=== PATIENT | male | born 1965 | race Caucasian/White ===

== ENCOUNTER 2021-05-25 10:21 | Observation (INO) ==
[2021-05-25 10:51] LABS: Basophils # (auto) 0.02 K/uL (0-0.2); Basophils % (auto) 0.4 %; Eosinophils # (auto) 0.08 K/uL (0-0.5); Eosinophils % (auto) 1.6 %; Hematocrit (blood only) 41.6 % (42-52); Hemoglobin 14.4 g/dL (14.0-18.0); Lymphocytes # (auto) 1.55 K/uL (1.2-3.4); Lymphocytes % (auto) 31.1 %; Mean Corpuscular Hemoglobin 34.4 pg (25-34); Mean Corpuscular Hgb Conc 34.6 g/dL (32-36); Mean Corpuscular Volume 99.3 fL (80-100); Mean Platelet Volume 9.9 fL (7.4-10.4); Monocytes # (auto) 0.39 K/uL (0.11-0.59); Monocytes % (auto) 7.8 %; Neutrophils # (auto) 2.95 K/uL (1.4-6.5); Neutrophils % (auto) 59.1 %; Platelet Count 169 K/uL (130-400); RDW Coefficient of Variation 12.1 % (11.5-14.5); RDW Standard Deviation 43.6 fL (36.4-46.3); Red Blood Count 4.19 M/uL (4.7-6.1); White Blood Count 4.99 K/uL (4.8-10.8)
--- NOTE | 2021-05-25 10:59 | XRay Report ---
XR chest 1V portable HISTORY: Atypical Chest Pain COMPARISON: Chest 02/05/2021. FINDINGS: The lungs are clear. Cardiac silhouette is normal in size. No pleural effusions. No pneumot horax. Cervical spinal fusion hardware is partially visualized. IMPRESSION: No acute process. ACT 112: Negative or not required by law. Electronically signed by: Morteza Carballo M.D. 05/25/2021 10:58 AM
[2021-05-25 11:01] LABS: Partial Thromboplastin Time 25.5 Seconds (21.0-31.0); Prothrombin Time 10.3 Seconds (9.0-12.0)
[2021-05-25 11:10] LABS: Alanine Aminotransferase 17 U/L (12-78); Albumin Level 3.5 gm/dl (3.4-5.0); Aspartate Aminotransferase 12 U/L (15-37); BUN Creatinine Ratio 16.6 (10-20); Blood Urea Nitrogen 14 mg/dl (7-18); Calcium 8.2 mg/dl (8.5-10.1); Carbon Dioxide 27 mmol/L (21-32); Chloride 111 mmol/L (98-107); Est GFR (African American) 112.4 ml/min; Est GFR (Non-African American) 96.9 ml/min; Glucose 112 mg/dl (70-99); Sodium 141 mmol/L (136-145)
[2021-05-25 11:15] LABS: Albumin Globulin Ratio 1.6 (0.9-2); Alkaline Phosphatase 45 U/L (45-117); Bilirubin,Total 0.6 mg/dl (0.2-1); Globulin 2.2 gm/dl (2.5-4.0); Total Protein 5.7 gm/dl (6.4-8.2); Troponin I < 0.015 ng/ml (0-0.045)
--- NOTE | 2021-05-25 11:43 | Emergency Department Note ---
Impression & Plan Retrosternal chest pain, Acute hypotension ED Provider Note INFORMANT: Patient ED PROVIDER(S): Edgardo Zuluaga MD CHIEF COMPLAINT: Chest pain PLAN: Disposition: Admitted Condition: Good Outpatient prescription management: none Referral: None MEDICAL DECISION MAKING: Patient presented to the emergency department with intermittent chest pain issues that have been escalating. He does note an exertional component at times. He does have relief with nitroglycerin. The patient's blood pressure was low for EMS and he was treated with normal saline. His hypotension resolved. He was pain-free on my evaluation. His ECG did not show any acute findings. The patient's chest x-ray was negative. His laboratory testing was unremarkable. He was sent for CT imaging of the chest to further evaluate the etiology of his chest pain. Extensive coronary calcifications were noted. No acute thromboembolic disease was noted. Given the situation further management in the hospital was deemed appropriate. [facility] Patient was evaluated in the ER. Triage Nursing notes reviewed and agree them. Vital Signs: reviewed and remarkable for no significant abnormalities Differential diagnosis: Cardiac ischemia, aortic dissection, pulmonary embolism, pneumothorax, pneumonia, pericarditis, myocarditis, esophageal rupture, GERD, cholecystitis, pancreatitis, musculoskeletal, as well as other pathologies. Diagnostics interpreted by me: ECG: Twelve-lead ECG revealed normal sinus rhythm at 76 bpm. Septal Q waves present. No ST elevation or depression. No PACs or PVCs. Cardiac Monitoring: Cardiac monitoring ordered by me: The patient was placed on continuous cardiac monitoring and observed. It revealed a normal sinus rhythm at 60 beats per minute without ectopy or evidence of dysrhythmia. Imaging studies: Chest x-ray. Findings: A chest x-ray was performed and revealed no pneumothorax, effusion, infiltrate, pulmonary edema, free air under the diaphragm, or wide mediastinum. Impression: No acute disease. CT PE study shows coronary calcifications. No thromboembolic disease. I refer you to the EMR for further details. HPI: The patient is a 55year old male who presents to the Emergency Room with complaints of retrosternal chest pain. This started months ago and is intermittent. Occasionally at rest and sometimes exertional. Pain is relieved with nitro. The patient also notes the following associated symptoms, dizziness. The patient has been using nitro relieving factors. Current pain is rated as 0/10. Pt ws hypotensive for EMS and responded to a NSS bolus. Pt denies LOC, headache, fevers, chills, diaphoresis, visual changes, neck pain, breathing difficulties, nausea, vomiting, abdominal pain, back pain, melena, hematochezia, urinary symptoms, numbness, weakness, lymphadenopathy, rash, or other complaints. ROS: See above HPI for pertinent positives & negatives. A total of 10 systems reviewed and were otherwise negative. PAST MEDICAL HISTORY:See Below , CAD PAST SURGICAL HISTORY:See Below, FAMILY HISTORY:See Below SOCIAL HISTORY:See Below, incarcerated HOME MEDICATIONS:See Below ALLERGIES:See Below VITALS:See Below PHYSICAL EXAMINATION: GENERAL: Awake, alert, well-appearing, in no distress HENT: Normocephalic, atraumatic. Oropharynx unremarkable. EYES: Normal conjunctiva. Sclera non-icteric. NECK: Inspection normal. Non-tender. Supple. No nuchal rigidity. FROM. No masses. RESPIRATORY: Clear to auscultation. No wheezes. No rales. Normal respiratory effort. CARDIAC: Normal rate. Normal rhythm. No murmurs. No rubs. Extremities warm and well perfused. Pulses equal. No JVD. GI: Soft, non-distended. No tenderness to palpation. No rebound or guarding. No masses. RECTAL: Deferred. MUSCULOSKELETAL: Atraumatic. Chest examination reveals no tenderness. The back is symmetrical on inspection without obvious abnormality. There is no CVA tenderness to palpation. No joint edema. LOWER EXTREMITIES: Calves are equal size bilaterally and non-tender. No edema. No discoloration. NEURO: Normal sensorium. No sensory or motor deficits noted. SKIN: No rash or jaundice noted. Edgardo Zuluaga MD Past Med/Surg History Medical History Alzheimer's disease CAD (coronary artery disease) Social History Smoking Status: Never smoker Preferred Language: Spanish Feels Safe at Home: Yes Allergies Allergies Allergy/AdvReac Type Severity Reaction Status Date / Time Sulfa (Sulfonamide Allergy Unknown Verified 05/25/21 13:08 Antibiotics) Home Meds Home Medications Medication Instructions Recorded Confirmed Tar Shampoo 1 dose TOPICAL MOWEFR 05/25/21 05/25/21 acetaminophen [Tylenol Extra 500 mg PO BID PRN 05/25/21 05/25/21 Strength] atorvastatin 20 mg PO HS 05/25/21 05/25/21 capsaicin 1 applic TOPICAL QID PRN 05/25/21 05/25/21 celecoxib [Celebrex] 200 mg PO DAILY 05/25/21 05/25/21 ciclesonide [Alvesco] 1 puff INHALATION BID 05/25/21 05/25/21 docusate sodium 200 mg PO DAILY 05/25/21 05/25/21 docusate sodium 300 mg PO HS 05/25/21 05/25/21 donepezil 10 mg PO DAILY 05/25/21 05/25/21 hydrocortisone 1 ea TOPICAL DAILY 05/25/21 05/25/21 isosorbide mononitrate 30 mg PO DAILY 05/25/21 05/25/21 lactulose 30 g PO BID 05/25/21 05/25/21 levalbuterol tartrate [Xopenex HFA] 2 inh INHALATION Q6H PRN 05/25/21 05/25/21 lidocaine 1 applic TOPICAL QID PRN 05/25/21 05/25/21 memantine [Namenda XR] 14 mg PO DAILY 05/25/21 05/25/21 montelukast 10 mg PO HS 05/25/21 05/25/21 nitroglycerin [Nitrostat] 0.4 mg SUBLINGUAL UD PRN 05/25/21 05/25/21 pantoprazole 20 mg PO DAILY 05/25/21 05/25/21 parab-cetyl,stea alc-p.gly-sls 1 applic TOPICAL DAILY 05/25/21 05/25/21 [Cetaphil] prazosin 1 mg PO HS 05/25/21 05/25/21 ramelteon [Rozerem] 8 mg PO HS 05/25/21 05/25/21 sertraline 100 mg PO HS 05/25/21 05/25/21 trazodone 200 mg PO HS 05/25/21 05/25/21 Results & Data (ED) Vital Signs Vital Signs - 24 hr 05/25/21 10:29 05/25/21 11:31 05/25/21 12:30 Temperature 36.5 C Temperature Source Oral Pulse Rate 87 65 86 Pulse Rate from SpO2 Sensor 66 78 Pulse Rhythm Regular Pulse Strength Normal Respiratory Rate 20 23 24 Respiratory Effort / Characteristics Non-Labored Spontaneous Respiratory Depth Normal Respiratory Pattern Regular Blood Pressure 108/55 L 122/70 101/62 Blood Pressure Mean 72 87 75 Blood Pressure Position Sitting Pulse Oximetry 96 96 97 Oxygen Delivery Method Room Air Sepsis Recent Fever Within 48 Hours No Sepsis New/Unexplained Change in Mental Status No Sepsis Action Taken by Nursing No Action Required 05/25/21 13:30 05/25/21 14:02 Temperature Temperature Source Pulse Rate 59 L 58 L Pulse Rate from SpO2 Sensor 57 L 60 Pulse Rhythm Pulse Strength Respiratory Rate 21 18 Respiratory Effort / Characteristics Respiratory Depth Respiratory Pattern Blood Pressure 119/76 130/78 Blood Pressure Mean 90 95 Blood Pressure Position Pulse Oximetry 96 98 Oxygen Delivery Method Sepsis Recent Fever Within 48 Hours Sepsis New/Unexplained Change in Mental Status Sepsis Action Taken by Nursing Laboratory Data Result diagrams: 05/25/21 10:34 05/25/21 10:34 Lab Results 05/25/21 05/25/21 05/25/21 Range/Units 10:34 10:34 10:34 WBC 4.99 (4.8-10.8) K/uL RBC 4.19 L (4.7-6.1) M/uL Hgb 14.4 (14.0-18.0) g/dL Hct 41.6 L (42-52) % MCV 99.3 (80-100) fL MCH 34.4 H (25-34) pg MCHC 34.6 (32-36) g/dL RDW Std Deviation 43.6 (36.4-46.3) fL RDW Coeff of Zakiya 12.1 (11.5-14.5) % Plt Count 169 (130-400) K/uL MPV 9.9 (7.4-10.4) fL Immature Gran % (Auto) 0.0 % Neut % (Auto) 59.1 % Lymph % (Auto) 31.1 % [place] % (Auto) 7.8 % Eos % (Auto) 1.6 % Baso % (Auto) 0.4 % Neut # (Auto) 2.95 (1.4-6.5) K/uL Lymph # (Auto) 1.55 (1.2-3.4) K/uL [place] # (Auto) 0.39 (0.11-0.59) K/uL Eos # (Auto) 0.08 (0-0.5) K/uL Baso # (Auto) 0.02 (0-0.2) K/uL Immature Gran # (Auto) 0.00 (0.00-0.02) K/uL PT 10.3 (9.0-12.0) Seconds INR 1.0 (0.9-1.1) APTT 25.5 (21.0-31.0) Seconds PTT Ratio 1.0 Sodium 141 (136-145) mmol/L Potassium 4.0 (3.5-5.1) mmol/L Chloride 111 H (98-107) mmol/L Carbon Dioxide 27 (21-32) mmol/L Anion Gap 3.0 (3-11) BUN 14 (7-18) mg/dl Creatinine 0.86 (0.6-1.4) mg/dl Est Cr Clr Drug Dosing 92.0 ml/min Est GFR ( Amer) 112.4 ml/min Est GFR (Non-Af Amer) 96.9 ml/min BUN/Creatinine Ratio 16.6 (10-20) Glucose 112 H (70-99) mg/dl Calcium 8.2 L (8.5-10.1) mg/dl Total Bilirubin 0.6 (0.2-1) mg/dl AST 12 L (15-37) U/L ALT 17 (12-78) U/L Alkaline Phosphatase 45 (45-117) U/L Troponin I < 0.015 (0-0.045) ng/ml Total Protein 5.7 L (6.4-8.2) gm/dl Albumin 3.5 (3.4-5.0) gm/dl Globulin 2.2 L (2.5-4.0) gm/dl Albumin/Globulin Ratio 1.6 (0.9-2) COVID-19 Eval Order SARS-CoV-2 (PCR) (Negative) 05/25/21 05/25/21 Range/Units 13:27 13:27 WBC (4.8-10.8) K/uL RBC (4.7-6.1) M/uL Hgb (14.0-18.0) g/dL Hct (42-52) % MCV (80-100) fL MCH (25-34) pg MCHC (32-36) g/dL RDW Std Deviation (36.4-46.3) fL RDW Coeff of Zakiya (11.5-14.5) % Plt Count (130-400) K/uL MPV (7.4-10.4) fL Immature Gran % (Auto) % Neut % (Auto) % Lymph % (Auto) % [place] % (Auto) % Eos % (Auto) % Baso % (Auto) % Neut # (Auto) (1.4-6.5) K/uL Lymph # (Auto) (1.2-3.4) K/uL [place] # (Auto) (0.11-0.59) K/uL Eos # (Auto) (0-0.5) K/uL Baso # (Auto) (0-0.2) K/uL Immature Gran # (Auto) (0.00-0.02) K/uL PT (9.0-12.0) Seconds INR (0.9-1.1) APTT (21.0-31.0) Seconds PTT Ratio Sodium (136-145) mmol/L Potassium (3.5-5.1) mmol/L Chloride (98-107) mmol/L Carbon Dioxide (21-32) mmol/L Anion Gap (3-11) BUN (7-18) mg/dl Creatinine (0.6-1.4) mg/dl Est Cr Clr Drug Dosing ml/min Est GFR ( Amer) ml/min Est GFR (Non-Af Amer) ml/min BUN/Creatinine Ratio (10-20) Glucose (70-99) mg/dl Calcium (8.5-10.1) mg/dl Total Bilirubin (0.2-1) mg/dl AST (15-37) U/L ALT (12-78) U/L Alkaline Phosphatase (45-117) U/L Troponin I (0-0.045) ng/ml Total Protein (6.4-8.2) gm/dl Albumin (3.4-5.0) gm/dl Globulin (2.5-4.0) gm/dl Albumin/Globulin Ratio (0.9-2) COVID-19 Eval Order Covid19 at [facility] SARS-CoV-2 (PCR) NEGATIVE (Negative) Administered Medications Discontinued Medications Ioversol (Optiray 320 125ml) 120 ml IV ONCE ONE Stop: 05/25/21 11:51 Last Admin: 05/25/21 11:50 Dose: 120 ml Documented by: [id number] Imaging Data Radiologist's Impression: Chest X-Ray 05/25/21 10:31 XR chest 1V portable HISTORY: Atypical Chest Pain COMPARISON: Chest 02/05/2021. FINDINGS: The lungs are clear. Cardiac silhouette is normal in size. No pleural effusions. No pneumothorax. Cervical spinal fusion hardware is partially vis ualized. IMPRESSION: No acute process. ACT 112: Negative or not required by law. Electronically signed by: Morteza Carballo M.D. 05/25/2021 10:58 AM Chest CTA 05/25/21 11:20 CT ANGIOGRAPHY OF THE CHEST, PULMONARY EMBOLUS PROTOCOL CLINICAL HISTORY: Shortness of breath. Chest pain. COMPARISON STUDY: Chest radiograph February 05, 2021 and May 25, 2021. TECHNIQUE: Following IV administration of 120 mL of Optiray, helical axial images of the chest were obtained utilizing the pulmonary embolus protocol. Maximal intensity projections and sagittal and coronal reformats were viewed on an independent 3D workstation. IV contrast was administered without complication. Automated exposure control was utilized for the study. A dose lowering technique was utilized adhering to the principles of ALARA. CT DOSE: 283.29 mGy.cm FINDINGS: No pulmonary emboli are identified. Size of the heart is normal. There is moderate coronary artery calcification. There is no pericardial effusion. No enlarged axillary, mediastinal or hilar lymph nodes are present. Central airways are patent. Lungs are suboptimally assessed given respiratory motion. There is no consolidation to suggest pneumonia. No pneumothorax or pleural effusion is noted. There is moderate emphysema. No pulmonary nodules are identified. No acute fracture or suspicious lesion is identified within visualized portions of the bony thorax. IMPRESSION: 1. No pulmonary emboli identified. 2. No acute process within the chest. 3. Emphysema. 4. Moderate coronary artery calcification. ACT 112: Negative or not required by law. Electronically signed by: Jose Turner M.D. 05/25/2021 12:17 PM Discharge Plan Visit Data Chief Complaint: Chest Pain Stated Complaint: CHEST PAIN ED Provider: Edgardo Zuluaga Discharge Problem: Retrosternal chest pain, Acute hypotension Forms Stand Alone Forms: My [facility] Prescriptions Prescriptions: No Action celecoxib [Celebrex] 200 mg Capsule 200 mg PO DAILY RF: 0 hydrocortisone 0.25 % Lotion 1 ea TOPICAL DAILY RF: 0 atorvastatin 20 mg Tablet 20 mg PO HS RF: 0 prazosin 1 mg Capsule 1 mg PO HS RF: 0 donepezil 10 mg Tablet 10 mg PO DAILY RF: 0 sertraline 100 mg Tablet 100 mg PO HS RF: 0 acetaminophen [Tylenol Extra Strength] 500 mg Tablet 500 mg PO BID PRN (Reason: Pain) RF: 0 pantoprazole 20 mg Tablet,Delayed Release (Dr/Ec) 20 mg PO DAILY RF: 0 trazodone 100 mg Tablet 200 mg PO HS RF: 0 nitroglycerin [Nitrostat] 0.4 mg Tablet, Sublingual 0.4 mg sublingual UD PRN (Reason: CP) RF: 0 docusate sodium 100 mg Capsule 200 mg PO DAILY RF: 0 docusate sodium 100 mg Capsule 300 mg PO HS RF: 0 montelukast 10 mg Tablet 10 mg PO HS RF: 0 isosorbide mononitrate 10 mg Tablet 30 mg PO DAILY RF: 0 capsaicin 0.025 % Cream 1 applic TOPICAL QID PRN (Reason: ..) RF: 0 Cetaphil Cleanser 1 applic TOPICAL DAILY RF: 0 lactulose 10 gram/15 mL Solution 30 g PO BID RF: 0 levalbuterol tartrate [Xopenex HFA] 45 mcg/actuation Hfa Aerosol Inhaler 2 inh INHALATION Q6H PRN (Reason: Sinus Symptoms) RF: 0 ramelteon [Rozerem] 8 mg Tablet 8 mg PO HS RF: 0 Alvesco 160 mcg/actuation Hfa Aerosol Inhaler 1 puff INHALATION BID RF: 0 lidocaine 5 % Ointment 1 applic TOPICAL QID PRN (Reason: Pain) RF: 0 memantine [Namenda XR] 14 mg Capsule,Sprinkle,Er 24hr 14 mg PO DAILY RF: 0 Tar Shampoo 1 dose topical MOWEFR RF: 0
[2021-05-25] MEDS ORDERED: OPTIRAY 320 125ml IV ONE (11:50)
--- NOTE | 2021-05-25 12:18 | CT Scan Report ---
CT ANGIOGRAPHY OF THE CHEST, PULMONARY EMBOLUS PROTOCOL CLINICAL HISTORY: Shortness of breath. Chest pain. COMPARISON STUDY: Chest radiograph February 05, 2021 and May 25, 2021. TECHNIQUE: Following IV administration of 120 mL of Optiray, helical axial images of the chest were o btained utilizing the pulmonary embolus protocol. Maximal intensity projections and sagittal and cor onal reformats were viewed on an independent 3D workstation. IV contrast was administered without co mplication. Automated exposure control was utilized for the study. A dose lowering technique was ut ilized adhering to the principles of ALARA. CT DOSE: 283.29 mGy.cm FINDINGS: No pulmonary emboli are identified. Size of the heart is normal. There is moderate coronar y artery calcification. There is no pericardial effusion. No enlarged axillary, mediastinal or hilar lymph nodes are present. Central airways are patent. Lungs are suboptimally assessed given respirator y motion. There is no consolidation to suggest pneumonia. No pneumothorax or pleural effusion is note d. There is moderate emphysema. No pulmonary nodules are identified. No acute fracture or suspicious lesion is identified within visualized portions of the bony thorax. IMPRESSION: 1. No pulmonary emboli identified. 2. No acute process within the chest. 3. Emphysema. 4. Moderate coronary artery calcification. ACT 112: Negative or not required by law. Electronically signed by: Jose Turner M.D. 05/25/2021 12:17 PM
--- NOTE | 2021-05-25 15:35 | History & Physical Report ---
Date of Service May 25, 2021 Assessment & Plan (1) Chest pain: sharp, squeezing chest pain at rest and with activity over the past 2 weeks- HTN, HLD, previous smoker with emphysema, age as risk factors - CTA; with noted moderate CAD negative for PE - ECG no acute changes compared to his previous - Troponin I negative- continue to trend with ECG - Requested records if available from [facility] - not on daily ASA, or BB (HR 56-58) in EMD - Continue Isosorbide - Continue Atorvastatin 20 mg daily - Cardiology consult for risk stratification - NSAID on hold (2) HLD (hyperlipidemia): As above (3) HTN (hypertension): Controlled, hypotensive on admission to the EMD - follow (4) Asthma: Asthma with Emphysema - continue outpatient inhalers- Xopenex, Alvesco (5) BPH (benign prostatic hyperplasia): Continue with prazosin (6) GERD (gastroesophageal reflux disease): Continue with pantoprazole 20mg PO daily - May benefit from stopping Celebrex and NSAIDS- (7) Constipation: Patient reports he had something done to his insides and can't have a normal BM - Continue with docusate in AM 200mg - Continue with Lactulose - Hold PM docusate 300mg (8) Atopic eczema: Continue Clobetasol cream (9) Acute hypotension: Resolved at this time, follow clinically with his NTG use and Isosorbide - LR overnight at 100 ml /hour for 1 liter (10) Alzheimer's disease: Continue ramelteon - unsure of onset or diagnostic criteria for this gentlemen History of Present Illness Chief Complaint: chest pain Primary Care Provider: VENKATA Grapevinealexandra 55 YOM with past medical history of : Head injury, HLD, HTN, angina, GERD, Back-pain with radiculopathy, Alzheimer's, BPH, Eczema, Constipation. Patient comes in today for complaints of chest pain not relieved with NTG at the residential. he originally arrived hypotensive to the EMD and responded to IVF. Patient is very animated in his descriptors and it is difficult to get an accurate history from the patient. Patient states that over the past few weeks he continues to get chest pain with exertion and even at rest. The pain is sharp and squeezing, the pain is located over his left chest and radiates to his back and down his left arm. He is unable to say whether it is accompanied with any SOB because he has COPD. He is unsure what makes the pain get better. He endorses that approximately in "2014 that he had an treadmill test that showed he has blockages in all his arteries and that he had a heart attack and even ." He believes this evaluation was done at [facility] as he was in [place] residential at that time. I have requested to get these records. Patient is not having any CP at this time. He did have a CTA in the EMD that was negative for PE, but did note moderate CAD. Patient was evaluated in January 2021 for same complaints of chest pain, however was originally brought over for head injury after hitting head in cell; however he declined admission a that time. Patient will be admitted, following troponin I as well as ECG. Cardiology consult for risk stratification and evaluation. COVID negative Allergies Allergy/AdvReac Type Severity Reaction Status Date / Time Sulfa (Sulfonamide Allergy Unknown Verified 05/25/21 13:08 Antibiotics) Home Medications Medication Instructions Recorded Confirmed Type Tar Shampoo 1 dose TOPICAL MOWEFR 05/25/21 05/25/21 History acetaminophen 500 mg tablet 500 mg PO BID PRN 05/25/21 05/25/21 History (Tylenol Extra Strength) atorvastatin 20 mg tablet 20 mg PO HS 05/25/21 05/25/21 History capsaicin 0.025 % topical cream 1 applic TOPICAL QID PRN 05/25/21 05/25/21 History ciclesonide 160 mcg/actuation 1 puff INHALATION BID 05/25/21 05/25/21 History aerosol inhaler (Alvesco) docusate sodium 100 mg capsule 200 mg PO DAILY 05/25/21 05/25/21 History docusate sodium 100 mg capsule 300 mg PO HS 05/25/21 05/25/21 History donepezil 10 mg tablet 10 mg PO DAILY 05/25/21 05/25/21 History hydrocortisone 0.25 % lotion 1 ea TOPICAL DAILY 05/25/21 05/25/21 History isosorbide mononitrate 10 mg tablet 30 mg PO DAILY 05/25/21 05/25/21 History lactulose 10 gram/15 mL oral 30 g PO BID 05/25/21 05/25/21 History solution levalbuterol tartrate 45 2 inh INHALATION Q6H PRN 05/25/21 05/25/21 History mcg/actuation aerosol inhaler (Xopenex HFA) lidocaine 5 % topical ointment 1 applic TOPICAL QID PRN 05/25/21 05/25/21 History memantine 14 mg capsule 14 mg PO DAILY 05/25/21 05/25/21 History sprinkle,extended release 24hr (Namenda XR) montelukast 10 mg tablet 10 mg PO HS 05/25/21 05/25/21 History nitroglycerin 0.4 mg sublingual 0.4 mg SUBLINGUAL UD PRN 05/25/21 05/25/21 History tablet (Nitrostat) pantoprazole 20 mg tablet,delayed 20 mg PO DAILY 05/25/21 05/25/21 History release paraben-cetyl alcohol-stearyl 1 applic TOPICAL DAILY 05/25/21 05/25/21 History alcohol-propy glycol-sls topical radiator cleaner (Cetaphil) prazosin 1 mg capsule 1 mg PO HS 05/25/21 05/25/21 History ramelteon 8 mg tablet (Rozerem) 8 mg PO HS 05/25/21 05/25/21 History sertraline 100 mg tablet 100 mg PO HS 05/25/21 05/25/21 History trazodone 100 mg tablet 200 mg PO HS 05/25/21 05/25/21 History celecoxib 200 mg capsule (Celebrex) 200 mg PO DAILY PRN #0 cap 05/26/21 05/25/21 Rx Past Med/Surg History Medical History (Updated 05/25/21 @ 15:23 by KEENAN Edouard) Alzheimer's dementia Alzheimer's disease Angina pectoris Asthma Atopic eczema BPH (benign prostatic hyperplasia) CAD (coronary artery disease) Constipation GERD (gastroesophageal reflux disease) HLD (hyperlipidemia) HTN (hypertension) Family History (Updated 05/25/21 @ 15:16 by KEENAN Edouard) Father Family history non-contributory Patient unable to provide accurate information Social History Smoking Status: Former smoker Preferred Language: Danish Communication Ability: Effective [employer] Required: No Beliefs That Will Affect Care: None Current Living Situation: Other Current Living Situation Comment: correctional facility Feels Safe at Home: Yes Assistive Devices: None Review of Systems Review of Systems: REVIEW OF SYSTEMS: Constitutional: No fever, sweats or chills Eyes: No diplopia, no worsening or blurred vision ENT: normal hearing, no trouble swallowing Respiratory: (+) cough, sputum, dyspnea at rest or on exertion Cardiovascular: (+) chest pain, tightness or palpitations Abdomen: (+) constipation, NO pain, nausea, vomiting, diarrhea Musculoskeletal: (+) back pain, neck pain, NO calf pain, swelling Neurologic: (+) decreased sensation to legs and arms, No balance problems Psychiatric: (+) anxiety, No depression Skin: (+) eczema and itchy skin Physical Exam Physical Exam: PHYSICAL EXAM: General: awake, alert, no apparent distress, maryiad of thoughts Head: Normocephalic, atraumatic ENT: PERRL, EOMI, no pharyngeal exudate, mucous membranes moist Neuro: AAO x 3, speech clear and appropriate, strength intact bilaterally 5/5, denies that he has any sensation in his legs, no pronator drift Chest: equal rise and fall of the chest, no accessory muscle use, no heaves or thrills, Clear to auscultation, on room air, Cardiac: Regular rate and rhythm, telemetry reviewed- NSR, skin warm dry, cap refill <3 seconds, peripheral pulses +2 no JVD, no murmur, no edema GI: NABS x 4 quadrants, soft, nontender to palpation, no rebound, guarding or tenderness : Spontaneously voiding, no pain, no CVA tenderness, Extremities: Normal inspection, no peripheral edema or erythema, calfs nonten lili to palpation Psych: animated descriptors, loss of fluidity of conversation Skin: right neck lateral old incision Results & Data Results & Data ([facility]) Vital Signs (Past 12 Hours) Vital Signs Temp Pulse Resp BP Pulse Ox 05/25/21 14:02 58 L 18 130/78 98 05/25/21 13:30 59 L 21 119/76 96 05/25/21 12:30 86 24 101/62 97 05/25/21 11:31 65 23 122/70 96 05/25/21 10:29 36.5 C 87 20 108/55 L 96 Laboratory Results Abnormal Labs 05/25/21 05/25/21 10:34 10:34 RBC 4.19 L Hct 41.6 L MCH 34.4 H Chloride 111 H Glucose 112 H Calcium 8.2 L AST 12 L Total Protein 5.7 L Globulin 2.2 L Diagnostic Findings Chest X-Ray 05/25/21 10:31 XR chest 1V portable HISTORY: Atypical Chest Pain COMPARISON: Chest 02/05/2021. FINDINGS: The lungs are clear. Cardiac silhouette is normal in size. No pleural effusions. No pneumothorax. Cervical spinal fusion hardware is partially visualized. IMPRESSION: No acute process. Electronically signed by: Morteza Carballo M.D. 05/25/2021 10:58 AM Chest CTA 05/25/21 11:20 CT ANGIOGRAPHY OF THE CHEST, PULMONARY EMBOLUS PROTOCOL CLINICAL HISTORY: Shortness of breath. Chest pain. COMPARISON STUDY: Chest radiograph February 05, 2021 and May 25, 2021. TECHNIQUE: Following IV administration of 120 mL of Optiray, helical axial images of the chest were obtained utilizing the pulmonary embolus protocol. Maximal intensity projections and sagittal and coronal reformats were viewed on an independent 3D workstation. IV contrast was administered without complication. Automated exposure control was utilized for the study. A dose lowering technique was utilized adhering to the principles of ALARA. CT DOSE: 283.29 mGy.cm FINDINGS: No pulmonary emboli are identified. Size of the heart is normal. There is moderate coronary artery calcification. There is no pericardial effusion. No enlarged axillary, mediastinal or hilar lymph nodes are present. Central airways are patent. Lungs are suboptimally assessed given respiratory motion. There is no consolidation to suggest pneumonia. No pneumothorax or pleural effusion is noted. There is moderate emphysema. No pulmonary nodules are identified. No acute fracture or suspicious lesion is identified within visualized portions of the bony thorax. IMPRESSION: 1. No pulmonary emboli identified. 2. No acute process within the chest. 3. Emphysema. 4. Moderate coronary artery calcification. Electronically signed by: Jose Turner M.D. 05/25/2021 12:17 PM Medications Administered Discontinued Medications Ioversol (Optiray 320 125ml) 120 ml IV ONCE ONE Stop: 05/25/21 11:51 Last Admin: 05/25/21 11:50 Dose: 120 ml Documented by: [id number] Home Medications Tar Shampoo 1 dose TOPICAL MOWEFR 05/25/21 [History Confirmed 05/25/21] acetaminophen [Tylenol Extra Strength] 500 mg PO BID PRN 05/25/21 [History Confirmed 05/25/21] atorvastatin 20 mg PO HS 05/25/21 [History Confirmed 05/25/21] capsaicin 1 applic TOPICAL QID PRN 05/25/21 [History Confirmed 05/25/21] celecoxib [Celebrex] 200 mg PO DAILY 05/25/21 [History Confirmed 05/25/21] ciclesonide [Alvesco] 1 puff INHALATION BID 05/25/21 [History Confirmed 05/25/21] docusate sodium 200 mg PO DAILY 05/25/21 [History Confirmed 05/25/21] docusate sodium 300 mg PO HS 05/25/21 [History Confirmed 05/25/21] donepezil 10 mg PO DAILY 05/25/21 [History Confirmed 05/25/21] hydrocortisone 1 ea TOPICAL DAILY 05/25/21 [History Confirmed 05/25/21] isosorbide mononitrate 30 mg PO DAILY 05/25/21 [History Confirmed 05/25/21] lactulose 30 g PO BID 05/25/21 [History Confirmed 05/25/21] levalbuterol tartrate [Xopenex HFA] 2 inh INHALATION Q6H PRN 05/25/21 [History Confirmed 05/25/21] lidocaine 1 applic TOPICAL QID PRN 05/25/21 [History Confirmed 05/25/21] memantine [Namenda XR] 14 mg PO DAILY 05/25/21 [History Confirmed 05/25/21] montelukast 10 mg PO HS 05/25/21 [History Confirmed 05/25/21] nitroglycerin [Nitrostat] 0.4 mg SUBLINGUAL UD PRN 05/25/21 [History Confirmed 05/25/21] pantoprazole 20 mg PO DAILY 05/25/21 [History Confirmed 05/25/21] parab-cetyl,stea alc-p.gly-sls [Cetaphil] 1 applic TOPICAL DAILY 05/25/21 [History Confirmed 05/25/21] prazosin 1 mg PO HS 05/25/21 [History Confirmed 05/25/21] ramelteon [Rozerem] 8 mg PO HS 05/25/21 [History Confirmed 05/25/21] sertraline 100 mg PO HS 05/25/21 [History Confirmed 05/25/21] trazodone 200 mg PO HS 05/25/21 [History Confirmed 05/25/21] ECG Additional Comments: Normal sinus rhythm Septal infarct (cited on or before 25-MAY-2021) Abnormal ECG When compared with ECG of 05-FEB-2021 17:40, No significant change was found Code Status & VTE Plan Code Status CODE: FULL VTE: SCDs, Heparin 5000 units subq TID Supervising Physician Co-Signing Physician Notes Patient seen and examined at bedside. Obtained history and physical examination during face to face encounter with patient. I reviewed above note and agree with it. Discussed plan with JC Villafana. I answered all of the patients questions. Patient will be admitted for chest pain and risk stratification. will consul cardio and check cardiac markers PG Care Time/CCT Total # of Minutes Spent Total Time Spent with Patient: Total time spent is greater than 50% in coordination of care (as documented) at patient's floor/unit and/or counseling patient: Coding Level of Care Code 56463 Initial Inpt Care Lvl 3 Diagnoses Chest pain R07.9 Chest pain type: unspecified HLD (hyperlipidemia) E78.5 HTN (hypertension) I10 Asthma J45.909 BPH (benign prostatic hyperplasia) N40.0 GERD (gastroesophageal reflux disease) K21.9 Constipation K59.00 Atopic eczema L20.9 Acute hypotension I95.9 Alzheimer's disease G30.9; F02.80 (1) Chest pain Chest pain type: unspecified Qualified Code(s): R07.9 - Chest pain, unspecified
[2021-05-25] MEDS ORDERED: LIDOCAINE 5% OINT 30 GM TUBE TOP PRN (17:07)
[2021-05-25] MEDS ORDERED: LEVALBUTEROL TARTRATE 15 GM HFA.AER.AD INH PRN (17:07)
[2021-05-25] MEDS ORDERED: LACTATED RINGER'S 1,000 ML IV ONE (18:00)
--- NOTE | 2021-05-25 18:31 | Electrocardiogram Report ---
Test Reason : Blood Pressure : / mmHG Vent. Rate : 076 BPM Atrial Rate : 076 BPM P-R Int : 160 ms QRS Dur : 092 ms QT Int : 370 ms P-R-T Axes : 075 085 063 degrees QTc Int : 416 ms Normal sinus rhythm When compared with ECG of 05-FEB-2021 17:40, No significant change was found Confirmed by Romain Hunt ([id number]) on 05/25/2021 6:30:40 PM Referred By: [facility] Confirmed By:Joon Hunt
[2021-05-25] MEDS: LACTULOSE SYRUP 30 GM/45 ML UDP PO SCH (20:13)
[2021-05-25] MEDS: MEMANTINE HCL 5 MG TAB PO SCH (20:13)
[2021-05-25] MEDS: ACETAMINOPHEN 500 MG TAB PO PRN (20:18)
[2021-05-25] MEDS: NITROGLYCERIN SL 0.4 MG/TAB TAB SL PRN (20:35)
[2021-05-25] MEDS ORDERED: traZODone HCL 100 MG TAB PO SCH (21:00)
[2021-05-25] MEDS ORDERED: MONTELUKAST SODIUM 10 MG TABLET PO SCH (21:00)
[2021-05-25] MEDS ORDERED: SERTRALINE HCL 100 MG TABLET PO SCH (21:00)
[2021-05-25] MEDS ORDERED: ATORVASTATIN 20 MG TAB PO SCH (21:00)
[2021-05-25] MEDS ORDERED: PRAZOSIN HCL 1 MG CAP PO SCH (21:00)
[2021-05-25] MEDS: HEPARIN SOD 5,000 UNIT/0.5 ML VIAL SQ SCH (21:22)
[2021-05-26] MEDS: NITROGLYCERIN SL 0.4 MG/TAB TAB SL PRN (05:28)
[2021-05-26] MEDS: HEPARIN SOD 5,000 UNIT/0.5 ML VIAL SQ SCH ×2 (06:30→13:15)
[2021-05-26] MEDS: ACETAMINOPHEN 500 MG TAB PO PRN (06:31)
[2021-05-26 07:39] LABS: Basophils # (auto) 0.03 K/uL (0-0.2); Basophils % (auto) 0.6 %; Eosinophils # (auto) 0.16 K/uL (0-0.5); Eosinophils % (auto) 3.4 %; Hematocrit (blood only) 44.9 % (42-52); Hemoglobin 15.5 g/dL (14.0-18.0); Lymphocytes # (auto) 1.76 K/uL (1.2-3.4); Lymphocytes % (auto) 37.4 %; Mean Corpuscular Hemoglobin 34.3 pg (25-34); Mean Corpuscular Hgb Conc 34.5 g/dL (32-36); Mean Corpuscular Volume 99.3 fL (80-100); Mean Platelet Volume 10.3 fL (7.4-10.4); Monocytes # (auto) 0.29 K/uL (0.11-0.59); Monocytes % (auto) 6.2 %; Neutrophils # (auto) 2.46 K/uL (1.4-6.5); Neutrophils % (auto) 52.4 %; Platelet Count 158 K/uL (130-400); RDW Coefficient of Variation 12.1 % (11.5-14.5); RDW Standard Deviation 43.4 fL (36.4-46.3); Red Blood Count 4.52 M/uL (4.7-6.1)
[2021-05-26 08:11] LABS: BUN Creatinine Ratio 12.2 (10-20); Blood Urea Nitrogen 11 mg/dl (7-18); Calcium 8.4 mg/dl (8.5-10.1); Carbon Dioxide 29 mmol/L (21-32); Chloride 109 mmol/L (98-107); Cholesterol 101 mg/dl (0-200); Est GFR (African American) 111.3 ml/min; Glucose 82 mg/dl (70-99); Magnesium 2.2 mg/dl (1.8-2.4); Sodium 141 mmol/L (136-145); Triglycerides 58 mg/dl (0-150); VLDL Cholesterol 12 mg/dl
[2021-05-26 08:15] LABS: Chol HDL Ratio 3; HDL Cholesterol 39 mg/dl; LDL Cholesterol Calculated 50 mg/dl; Troponin I < 0.015 ng/ml (0-0.045)
[2021-05-26] MEDS ORDERED: DOCUSATE SODIUM 100 MG CAP PO SCH (09:00)
[2021-05-26] MEDS ORDERED: ISOSORBIDE MONO EXTENDED REL 30 MG TABCR PO SCH (09:00)
[2021-05-26] MEDS ORDERED: DONEPEZIL HCL 10 MG TAB PO SCH (09:00)
[2021-05-26] MEDS ORDERED: FLUTICASONE FUROATE 200MCG 14 PUFFS/INHALER INH SCH (09:00)
[2021-05-26] MEDS ORDERED: PANTOprazole 40 MG TAB PO SCH (09:00)
[2021-05-26] MEDS: MEMANTINE HCL 5 MG TAB PO SCH (09:48)
[2021-05-26] MEDS: LACTULOSE SYRUP 30 GM/45 ML UDP PO SCH (09:51)
--- NOTE | 2021-05-26 10:41 | Cardiology Consultation ---
Date of Consultation May 26, 2021 Assessment & Plan (1) Chest pain: He has typical and atypical features of chest discomfort. He is a poor and unreliable historian. However, it did seem that his symptoms yesterday were extended in duration. There has been no objective evidence of an acute coronary syndrome or ischemia. He likely have some element of coronary disease based on his coronary calcifications. I think we can perform some risk stratification with stress testing to get a better understanding of whether he needs to be treated more aggressively. I think it is unlikely that his symptoms are associated with obstructive coronary disease, although at 1 point he did report some exertional symptoms. (2) CAD (coronary artery disease): Likely given the coronary calcifications seen. Unknown if this represents obstructive coronary disease. In any event he should be treated with aggressive secondary prevention including continuation of his moderate dose atorvastatin and initiation of a daily aspirin. Currently at goal LDL on his atorvastatin. History of Present Illness Reason for Consultation: Chest Pain Attending Physician: Naveed Yousif History of Present Illness Patient is a 55 year old male who presented to the ED yesterday for chest pain. He states his chest pain comes and goes during activity and at rest. Currently he is in no pain. When he is in pain, it is located diffusely on his left chest and radiates to his left arm. Pain presents as a sharp feeling in his chest. He sometimes has associated symptoms of sweating. He does get some pain relief after taking nitroglycerin, however, he is more worried that one of these incidences could result in a heart attack. 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 He believes one of his arteries are clogged and was told during his last visit in the ED back in january he needed a stent. Documentation from his ED visit suggest otherwise. Allergies Allergy/AdvReac Type Severity Reaction Status Date / Time Sulfa (Sulfonamide Allergy Unknown Verified 05/25/21 13:08 Antibiotics) Home Medications Medication Instructions Recorded Confirmed Type Tar Shampoo 1 dose TOPICAL MOWEFR 05/25/21 05/25/21 History acetaminophen 500 mg tablet 500 mg PO BID PRN 05/25/21 05/25/21 History (Tylenol Extra Strength) atorvastatin 20 mg tablet 20 mg PO HS 05/25/21 05/25/21 History capsaicin 0.025 % topical cream 1 applic TOPICAL QID PRN 05/25/21 05/25/21 History celecoxib 200 mg capsule (Celebrex) 200 mg PO DAILY 05/25/21 05/25/21 History ciclesonide 160 mcg/actuation 1 puff INHALATION BID 05/25/21 05/25/21 History aerosol inhaler (Alvesco) docusate sodium 100 mg capsule 200 mg PO DAILY 05/25/21 05/25/21 History docusate sodium 100 mg capsule 300 mg PO HS 05/25/21 05/25/21 History donepezil 10 mg tablet 10 mg PO DAILY 05/25/21 05/25/21 History hydrocortisone 0.25 % lotion 1 ea TOPICAL DAILY 05/25/21 05/25/21 History isosorbide mononitrate 10 mg tablet 30 mg PO DAILY 05/25/21 05/25/21 History lactulose 10 gram/15 mL oral 30 g PO BID 05/25/21 05/25/21 History solution levalbuterol tartrate 45 2 inh INHALATION Q6H PRN 05/25/21 05/25/21 History mcg/actuation aerosol inhaler (Xopenex HFA) lidocaine 5 % topical ointment 1 applic TOPICAL QID PRN 05/25/21 05/25/21 History memantine 14 mg capsule 14 mg PO DAILY 05/25/21 05/25/21 History sprinkle,extended release 24hr (Namenda XR) montelukast 10 mg tablet 10 mg PO HS 05/25/21 05/25/21 History nitroglycerin 0.4 mg sublingual 0.4 mg SUBLINGUAL UD PRN 05/25/21 05/25/21 History tablet (Nitrostat) pantoprazole 20 mg tablet,delayed 20 mg PO DAILY 05/25/21 05/25/21 History release paraben-cetyl alcohol-stearyl 1 applic TOPICAL DAILY 05/25/21 05/25/21 History alcohol-propy glycol-sls topical roller cleaner (Cetaphil) prazosin 1 mg capsule 1 mg PO HS 05/25/21 05/25/21 History ramelteon 8 mg tablet (Rozerem) 8 mg PO HS 05/25/21 05/25/21 History sertraline 100 mg tablet 100 mg PO HS 05/25/21 05/25/21 History trazodone 100 mg tablet 200 mg PO HS 05/25/21 05/25/21 History Patient History Medical History (Updated 05/25/21 @ 15:23 by KEENAN Edouard) Alzheimer's dementia Alzheimer's disease Angina pectoris Asthma Atopic eczema BPH (benign prostatic hyperplasia) CAD (coronary artery disease) Constipation GERD (gastroesophageal reflux disease) HLD (hyperlipidemia) HTN (hypertension) Family History (Updated 05/25/21 @ 15:16 by KEENAN Edouard) Father Family history non-contributory Patient unable to provide accurate information Social History Smoking Status: Former smoker Preferred Language: Pashto Communication Ability: Effective Pharmacist Assistant Required: No Beliefs That Will Affect Care: None Current Living Situation: Other Current Living Situation Comment: correctional facility Other Information That Helps Us Care for You: No Feels Safe at Home: Yes Safety Concerns: Feels Safe At This Time Assistive Devices: None Review of Systems Review of Systems: All systems reviewed & are unremarkable except as noted in Subjective Results & Data ([facility]) Vital Signs (Past 12 Hours) Vital Signs Temp Pulse Pulse Resp BP BP Pulse Ox 05/26/21 09:45 62 05/26/21 07:00 36.4 C L 53 L 18 108/69 97 05/26/21 05:27 118/79 05/26/21 04:00 36.5 C 59 L 20 95/60 L 98 05/26/21 00:18 59 L 05/25/21 23:22 36.7 C 64 20 126/76 95 Laboratory Results Abnormal Lab Results 05/25/21 05/25/21 05/25/21 13:27 13:27 16:50 WBC RBC Hgb Hct MCV MCH MCHC RDW Std Deviation RDW Coeff of Zakiya Plt Count MPV Immature Gran % (Auto) Neut % (Auto) Lymph % (Auto) [place] % (Auto) Eos % (Auto) Baso % (Auto) Neut # (Auto) Lymph # (Auto) [place] # (Auto) Eos # (Auto) Baso # (Auto) Immature Gran # (Auto) Sodium Potassium Chloride Carbon Dioxide Anion Gap BUN Creatinine Est Cr Clr Drug Dosing Est GFR ( Amer) Est GFR (Non-Af Amer) BUN/Creatinine Ratio Glucose POC Glucose 87 Calcium Magnesium Troponin I Triglycerides Cholesterol LDL Cholesterol, Calc VLDL Cholesterol, Calc HDL Cholesterol Cholesterol/HDL Ratio COVID-19 Eval Order Covid19 at [facility] SARS-CoV-2 (PCR) NEGATIVE 05/25/21 05/25/21 05/26/21 17:59 22:29 07:22 WBC 4.70 L RBC 4.52 L Hgb 15.5 Hct 44.9 MCV 99.3 MCH 34.3 H MCHC 34.5 RDW Std Deviation 43.4 RDW Coeff of Zakiya 12.1 Plt Count 158 MPV 10.3 Immature Gran % (Auto) 0.0 Neut % (Auto) 52.4 Lymph % (Auto) 37.4 [place] % (Auto) 6.2 Eos % (Auto) 3.4 Baso % (Auto) 0.6 Neut # (Auto) 2.46 Lymph # (Auto) 1.76 [place] # (Auto) 0.29 Eos # (Auto) 0.16 Baso # (Auto) 0.03 Immature Gran # (Auto) 0.00 Sodium Potassium Chloride Carbon Dioxide Anion Gap BUN Creatinine Est Cr Clr Drug Dosing Est GFR ( Amer) Est GFR (Non-Af Amer) BUN/Creatinine Ratio Glucose POC Glucose Calcium Magnesium Troponin I < 0.015 < 0.015 Triglycerides Cholesterol LDL Cholesterol, Calc VLDL Cholesterol, Calc HDL Cholesterol Cholesterol/HDL Ratio COVID-19 Eval Order SARS-CoV-2 (PCR) 05/26/21 07:22 WBC RBC Hgb Hct MCV MCH MCHC RDW Std Deviation RDW Coeff of Zakiya Plt Count MPV Immature Gran % (Auto) Neut % (Auto) Lymph % (Auto) [place] % (Auto) Eos % (Auto) Baso % (Auto) Neut # (Auto) Lymph # (Auto) [place] # (Auto) Eos # (Auto) Baso # (Auto) Immature Gran # (Auto) Sodium 141 Potassium 4.0 Chloride 109 H Carbon Dioxide 29 Anion Gap 3.0 BUN 11 Creatinine 0.88 Est Cr Clr Drug Dosing 86.0 Est GFR ( Amer) 111.3 Est GFR (Non-Af Amer) 96.0 BUN/Creatinine Ratio 12.2 Glucose 82 POC Glucose Calcium 8.4 L Magnesium 2.2 Troponin I < 0.015 Triglycerides 58 Cholesterol 101 LDL Cholesterol, Calc 50 VLDL Cholesterol, Calc 12 HDL Cholesterol 39 Cholesterol/HDL Ratio 3 COVID-19 Eval Order SARS-CoV-2 (PCR) Diagnostic Findings Chest CTA obtained revealed moderate coronary calcifications but no other acute intrathoracic process. ECG Additional Comments: EKG demonstrated normal sinus rhythm. No acute changes. Normal EKG. (1) Chest pain Chest pain type: unspecified Qualified Code(s): R07.9 - Chest pain, unspecified
[2021-05-26] MEDS ORDERED: DOBUTamine HCL 12.5 MG/ML 20 ML VIAL IV ONE (15:20)
[2021-05-26] MEDS ORDERED: ATROPINE SULFATE 0.1 MG/ML 10ML SYR IV ONE (15:20)
[2021-05-26] MEDS ORDERED: METOPROLOL TARTRATE 1 MG/ML VIAL IV ONE (15:20)
--- NOTE | 2021-05-26 16:52 | XCELERA ---
[id number]
--- NOTE | 2021-05-26 17:09 | Electrocardiogram Report ---
Test Reason : Blood Pressure : / mmHG Vent. Rate : 056 BPM Atrial Rate : 056 BPM P-R Int : 166 ms QRS Dur : 092 ms QT Int : 410 ms P-R-T Axes : 066 086 078 degrees QTc Int : 395 ms Sinus bradycardia Otherwise normal ECG When compared with ECG of 25-MAY-2021 10:29, No significant change was found Confirmed by Romain Hunt ([id number]) on 05/26/2021 5:09:19 PM Referred By: [facility] Confirmed By:Joon Hunt
--- NOTE | 2021-05-26 17:46 | Discharge Summary ---
Date of Service May 26, 2021 Admission HPI Per Admitting Provider 55 YOM with past medical history of : Head injury, HLD, HTN, angina, GERD, Back-pain with radiculopathy, Alzheimer's, BPH, Eczema, Constipation. Patient comes in today for complaints of chest pain not relieved with NTG at the [facility]. he originally arrived hypotensive to the [facility] and responded to IVF. Patient is very animated in his descriptors and it is difficult to get an accurate history from the patient. Patient states that over the past few weeks he continues to get chest pain with exertion and even at rest. The pain is sharp and squeezing, the pain is located over his left chest and radiates to his back and down his left arm. He is unable to say whether it is accompanied with any SOB because he has COPD. He is unsure what makes the pain get better. He endorses that approximately in "2014 that he had an treadmill test that showed he has blockages in all his arteries and that he had a heart attack and even ." He believes this evaluation was done at [facility] as he was in [facility] at that time. I have requested to get these records. Patient is not having any CP at this time. He did have a CTA in the EMD that was negative for PE, but did note moderate CAD. Patient was evaluated in January 2021 for same complaints of chest pain, however was originally brought over for head injury after hitting head in cell; however he declined admission a that time. Patient will be admit malcom, following troponin I as well as ECG. Cardiology consult for risk stratification and evaluation. COVID negative Principal Diagnosis chest pain Discharge Exam General: awake, alert, no apparent distress Head: Normocephalic, atraumatic ENT: PERRL, EOMI, no pharyngeal exudate, mucous membranes moist Neuro: AAO x 3 Chest: Clear to auscultation, on room air, Cardiac: Regular rate and rhythm, telemetry reviewed- NSR, skin warm dry, cap refill <3 seconds, peripheral pulses +2 no JVD, no murmur, no edema GI: NABS x 4 quadrants, soft, nontender to palpation, no rebound, guarding or tenderness : Spontaneously voiding, no pain, no CVA tenderness, Extremities: Normal inspection, no peripheral edema or erythema, calfs nontender to palpation Psych: animated descriptors, loss of fluidity of conversation Skin: right neck lateral old incision Discharge Data Allergies Allergy/AdvReac Type Severity Reaction Status Date / Time Sulfa (Sulfonamide Allergy Unknown Verified 05/25/21 13:08 Antibiotics) Consultations 05/25/21 14:48 Consult Health Information Management Routine 05/25/21 17:07 Consult Cardiology Routine Ordered Studies 05/25/21 11:20 CT angio chest PE protocol Stat Hospital Course (1) Chest pain: On admission: sharp, squeezing chest pain at rest and with activity over the past 2 weeks- HTN, HLD, previous smoker with emphysema, age as risk factors - CTA; with noted moderate CAD negative for PE - ECG no acute changes compared to his previous - Troponin I negative- continue to trend with ECG - Requested records if available from [facility] - not on daily ASA, or BB (HR 56-58) in EMD - Continue Isosorbide - Continue Atorvastatin 20 mg daily - Cardiology consult for risk stratification - NSAID on hold At discharge: Patient was evaluated by cardiology. Patient had a negative dobutamine stress test. Symptoms at this point are unlikely related to coronary artery disease. Would recommend aggressive secondary prevention: including moderate dose atorvastatin and initiation of a daily aspirin. (2) HLD (hyperlipidemia): As above (3) HTN (hypertension): Controlled, hypotensive on admission to the [facility] - follow (4) Asthma: Asthma with Emphysema - continue outpatient inhalers- Xopenex, Alvesco (5) BPH (benign prostatic hyperplasia): Continue with prazosin (6) GERD (gastroesophageal reflux disease): Continue with pantoprazole 20mg PO daily - May benefit from stopping Celebrex and NSAIDS- (7) Constipation: Patient reports he had something done to his insides and can't have a normal BM - Continue with docusate in AM 200mg - Continue with Lactulose - Hold PM docusate 300mg (8) Atopic eczema: Continue Clobetasol cream (9) Acute hypotension: Resolved at this time, follow clinically with his NTG use and Isosorbide - LR overnight at 100 ml /hour for 1 liter (10) Alzheimer's disease: Continue ramelteon - unsure of onset or diagnostic criteria for this gentlemen Total Time Total Time Spent Total Time Spent (In Minutes): 32 Discharge Plan Discharge Items [facility] Disposition[facility] Reason For Visit: CHEST PAIN Discharge Diagnosis: CHEST PAIN Activity: Resume your previous activity Non-emergency contact: Primary Care Provider Call non-emergency contact if: you have any medication questions Follow-up/Referrals: Anali HASTINGS [Primary Care Provider] - Diet: Regular Addtl Attending Provider Instructions: You were seen for chest pain and had a negative stress test. Pending Studies at Discharge: No Stand-Alone Forms: My [facility] [employer], Smoking Cessation Skilled Items Patient informed of condition?: Yes Discharge Level of Care: Skilled Communicable Disease: Yes Discharge Prognosis: Stable Lines: None Urinary Catheter: No Medications and DC Order Prescriptions: Continued hydrocortisone 0.25 % Lotion 1 ea TOPICAL DAILY RF: 0 atorvastatin 20 mg Tablet 20 mg PO HS RF: 0 prazosin 1 mg Capsule 1 mg PO HS RF: 0 donepezil 10 mg Tablet 10 mg PO DAILY RF: 0 sertraline 100 mg Tablet 100 mg PO HS RF: 0 acetaminophen [Tylenol Extra Strength] 500 mg Tablet 500 mg PO BID PRN (Reason: Pain) RF: 0 pantoprazole 20 mg Tablet,Delayed Release (Dr/Ec) 20 mg PO DAILY RF: 0 trazodone 100 mg Tablet 200 mg PO HS RF: 0 nitroglycerin [Nitrostat] 0.4 mg Tablet, Sublingual 0.4 mg sublingual UD PRN (Reason: CP) RF: 0 docusate sodium 100 mg Capsule 200 mg PO DAILY RF: 0 docusate sodium 100 mg Capsule 300 mg PO HS RF: 0 montelukast 10 mg Tablet 10 mg PO HS RF: 0 isosorbide mononitrate 10 mg Tablet 30 mg PO DAILY RF: 0 capsaicin 0.025 % Cream 1 applic TOPICAL QID PRN (Reason: ..) RF: 0 Cetaphil Cleanser 1 applic TOPICAL DAILY RF: 0 lactulose 10 gram/15 mL Solution 30 g PO BID RF: 0 levalbuterol tartrate [Xopenex HFA] 45 mcg/actuation Hfa Aerosol Inhaler 2 inh INHALATION Q6H PRN (Reason: Sinus Symptoms) RF: 0 ramelteon [Rozerem] 8 mg Tablet 8 mg PO HS RF: 0 Alvesco 160 mcg/actuation Hfa Aerosol Inhaler 1 puff INHALATION BID RF: 0 lidocaine 5 % Ointment 1 applic TOPICAL QID PRN (Reason: Pain) RF: 0 memantine [Namenda XR] 14 mg Capsule,Sprinkle,Er 24hr 14 mg PO DAILY RF: 0 Tar Shampoo 1 dose topical MOWEFR RF: 0 Changed celecoxib [Celebrex] 200 mg Capsule 200 mg PO DAILY PRN (Reason: severe pain) Qty: 0 RF: 0 Discharge Orders: Discharge Order (Routine); Ordered 05/26/21 Ordered By: Naveed Yousif Admission Data Admit Date/Time: 05/25/21 15:07 Attending Provider: Naveed Yousif Admit Provider: Sony Villafana Primary Care Provider: Anali HASTIGNS Other Providers: Everton Hunt Other Interventions: Discharge Summary Assessment (RN) Last Done: 05/26/21 19:19 Coding Level of Care Code D/C DAY MANAGEMENT >30 MINS Diagnoses Chest pain R07.9 Chest pain type: unspecified HLD (hyperlipidemia) E78.5 HTN (hypertension) I10 Asthma J45.909 BPH (benign prostatic hyperplasia) N40.0 GERD (gastroesophageal reflux disease) K21.9 Constipation K59.00 Atopic eczema L20.9 Acute hypotension I95.9 Alzheimer's disease G30.9; F02.80 Time Spent (min) 32
--- NOTE | 2021-05-26 18:27 | Cardiology Consultation ---
Date of Consultation May 26, 2021 Assessment & Plan (1) Chest pain: He has typical and atypical features of chest discomfort. He is a poor and unreliable historian. However, it did seem that his symptoms yesterday were extended in duration. There has been no objective evidence of an acute coronary syndrome or ischemia. He likely have some element of coronary disease based on his coronary calcifications. I think we can perform some risk stratification with stress testing to get a better understanding of whether he needs to be treated more aggressively. I think it is unlikely that his symptoms are associated with obstructive coronary disease, although at 1 point he did report some exertional symptoms. (2) CAD (coronary artery disease): Likely given the coronary calcifications seen. Unknown if this represents obstructive coronary disease. In any event he should be treated with aggressive secondary prevention including continuation of his moderate dose atorvastatin and initiation of a daily aspirin. Currently at goal LDL on his atorvastatin. History of Present Illness Reason for Consultation: Chest pain Requesting Physician: Benja Attending Physician: Naveed Yousif Allergies Allergy/AdvReac Type Severity Reaction Status Date / Time Sulfa (Sulfonamide Allergy Unknown Verified 05/25/21 13:08 Antibiotics) Home Medications Medication Instructions Recorded Confirmed Type Tar Shampoo 1 dose TOPICAL MOWEFR 05/25/21 05/25/21 History acetaminophen 500 mg tablet 500 mg PO BID PRN 05/25/21 05/25/21 History (Tylenol Extra Strength) atorvastatin 20 mg tablet 20 mg PO HS 05/25/21 05/25/21 History capsaicin 0.025 % topical cream 1 applic TOPICAL QID PRN 05/25/21 05/25/21 History celecoxib 200 mg capsule (Celebrex) 200 mg PO DAILY 05/25/21 05/25/21 History ciclesonide 160 mcg/actuation 1 puff INHALATION BID 05/25/21 05/25/21 History aerosol inhaler (Alvesco) docusate sodium 100 mg capsule 200 mg PO DAILY 05/25/21 05/25/21 History docusate sodium 100 mg capsule 300 mg PO HS 05/25/21 05/25/21 History donepezil 10 mg tablet 10 mg PO DAILY 05/25/21 05/25/21 History hydrocortisone 0.25 % lotion 1 ea TOPICAL DAILY 05/25/21 05/25/21 History isosorbide mononitrate 10 mg tablet 30 mg PO DAILY 05/25/21 05/25/21 History lactulose 10 gram/15 mL oral 30 g PO BID 05/25/21 05/25/21 History solution levalbuterol tartrate 45 2 inh INHALATION Q6H PRN 05/25/21 05/25/21 History mcg/actuation aerosol inhaler (Xopenex HFA) lidocaine 5 % topical ointment 1 applic TOPICAL QID PRN 05/25/21 05/25/21 History memantine 14 mg capsule 14 mg PO DAILY 05/25/21 05/25/21 History sprinkle,extended release 24hr (Namenda XR) montelukast 10 mg tablet 10 mg PO HS 05/25/21 05/25/21 History nitroglycerin 0.4 mg sublingual 0.4 mg SUBLINGUAL UD PRN 05/25/21 05/25/21 History tablet (Nitrostat) pantoprazole 20 mg tablet,delayed 20 mg PO DAILY 05/25/21 05/25/21 History release paraben-cetyl alcohol-stearyl 1 applic TOPICAL DAILY 05/25/21 05/25/21 History alcohol-propy glycol-sls topical cell cleaner (Cetaphil) prazosin 1 mg capsule 1 mg PO HS 05/25/21 05/25/21 History ramelteon 8 mg tablet (Rozerem) 8 mg PO HS 05/25/21 05/25/21 History sertraline 100 mg tablet 100 mg PO HS 05/25/21 05/25/21 History trazodone 100 mg tablet 200 mg PO HS 05/25/21 05/25/21 History Patient History Medical History (Updated 05/25/21 @ 15:23 by KEENAN Edouard) Alzheimer's dementia Alzheimer's disease Angina pectoris Asthma Atopic eczema BPH (benign prostatic hyperplasia) CAD (coronary artery disease) Constipation GERD (gastroesophageal reflux disease) HLD (hyperlipidemia) HTN (hypertension) Family History (Updated 05/25/21 @ 15:16 by KEENAN Edouard) Father Family history non-contributory Patient unable to provide accurate information Social History Smoking Status: Former smoker Preferred Language: Lao Communication 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 Beliefs That Will Affect Care: None Current Living Situation: Other Current Living Situation Comment: correctional facility Other Information That Helps Us Care for You: No Feels Safe at Home: Yes Safety Concerns: Feels Safe At This Time Assistive Devices: None Results & Data ([facility]) Vital Signs (Past 12 Hours) Vital Signs Temp Pulse Resp BP Pulse Ox 05/26/21 11:00 36.5 C 71 18 113/69 93 05/26/21 09:45 62 05/26/21 07:00 36.4 C L 53 L 18 108/69 97 PG Care Time/CCT Total # of Minutes Spent Total Time Spent with Patient: Total time spent is greater than 50% in coordination of care (as documented) at patient's floor/unit and/or counseling patient: Coding Level of Care Code 86733 Office/OBS Consult Lvl 4 Diagnoses Chest pain R07.9 Chest pain type: unspecified CAD (coronary artery disease) I25.10 (1) Chest pain Chest pain type: unspecified Qualified Code(s): R07.9 - Chest pain, unspecified
== END 2021-05-26 19:56 | DRG 313 ==
LOC: ED 10:21 → 2N 15:07 → INTOOBSV 15:07 → 2N 16:30